=== PATIENT | male | born 1955 | race Caucasian/White ===

== ENCOUNTER 2017-04-21 15:45 | Emergency (ER) | payer OTHER ==
[~2017-04-21] VITALS: Ht 172.7 cm; Wt 86.5 kg
[~2017-04-21 15:45] MED LIST: ACET-818 PO; IBUP-1542 PO
[2017-04-21 15:59] VITALS: Ht 172.7 cm; Wt 86.5 kg
[2017-04-21] MEDS ORDERED: KETOROLAC 30 MG INJ IM STA (18:30)
--- NOTE | 2017-04-21 18:50 | RADRPT ---
PROCEDURE: XR Ankle. CLINICAL INDICATION: Right ankle pain. Trauma TECHNIQUE: AP, lateral, and lateral views of the right ankle were performed. COMPARISON: None. FINDINGS: There is normal mineralization and alignment. No fracture or dislocation is identified. The ankle m ortise is intact. Mild to moderate bimalleolar soft tissue swelling is seen. The remaining soft tiss ues are unremarkable. IMPRESSION: Mild to moderate bimalleolar soft tissue swelling. RPTAT: HPNM Physician Ariana Date Time Electronically viewed and signed by Physician Ariana on 04/21/2017 18:49 /
--- NOTE | 2017-04-21 18:52 | RADRPT ---
PROCEDURE: XR Foot. CLINICAL INDICATION: Right foot pain. Injury TECHNIQUE: AP, lateral and oblique views of the right foot was obtained. The images were reviewed on a PACS workstation. COMPARISON: None. FINDINGS: The bones of the foot appear intact, with no evidence of fracture, dislocation, or subluxation. The joint spaces are preserved. Bone mineralization is normal. The soft tissue structures are intact. IMPRESSION: Unremarkable right foot radiographs. RPTAT: HPNM Physician Ariana Date Time Electronically viewed and signed by Physician Ariana on 04/21/2017 18:52 /
[2017-04-21] MEDS ORDERED: NAPR-260 PO (19:17)
[2017-04-21] MEDS ORDERED: RANI150T9 PO (19:17)
--- NOTE | 2017-04-22 18:02 | ERD ---
ER Documentation Chief Complaint Chief Complaint Complains of right ankle pain HPI This patient is a 61-year-old male with complaints of right ankle pain which began yesterday after injury. 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 He did not fall. There is no head injury or loss of consciousness. Pain currently is constant and worse with walking. Associated with swelling. He denies taking medication for relief of symptoms. No other injuries or symptoms reported at this time. ROS All systems reviewed and are negative except as per history of present illness. Medications Home Meds Active Scripts Ranitidine Hcl* (Zantac*) 150 Mg Tablet, 150 MG PO BID Y for EPIGASTRIC PAIN, # 20 TAB Prov:EMILY LEBLANC PA-C 04/21/17 Naproxen* (Naprosyn*) 500 Mg Tablet, 500 MG PO BID Y for PAIN AND/OR INFLAMMATION, #20 TAB Prov:EMILY LEBLANC PA-C 04/21/17 Reported Medications Ibuprofen* (Ibuprofen*) 600 Mg Tablet, 600 MG PO Q6, TAB 09/26/14 Acetaminophen-Codeine* (Tylenol No.3*) 300-30 Mg Tablet, 1 TAB PO Q4H Y for PAIN , TAB 09/26/14 Allergies Allergies: Coded Allergies: No Known Allergy (Unverified , 01/20/16) PMhx/Soc History of Surgery: Yes (RT WRIST SURGERY ) Hx Alcohol Use: No Hx Substance Use: No Hx Tobacco Use: No Smoking Status: Never smoker Physical Exam Vitals Vital Signs Date Time Temp Pulse Resp B/P Pulse Ox O2 Delivery O2 Flow Rate FiO2 04/21/17 15:59 97.9 93 20 159/100 96 Physical Exam Const: Nontoxic, well-appearing male in no acute distress. Head: Atraumatic Eyes: Normal Conjunctiva ENT: Normal External Ears, Nose and Mouth. Ext: Edema noted to the medial and lateral malleolus of the right lower extremity. Tenderness palpation overlying the lateral malleolus. No gross deformity noted. No open fracture noted. Neur: Awake and alert Psych: Normal Mood and Affect Results 24 hrs Current Medications Medications (Trade) Dose Ordered Sig/Nic Route PRN Reason Start Time Stop Time Status Last Admin Dose Admin Ketorolac Tromethamine (Toradol) 30 mg ONCE STAT IM 04/21/17 18:30 04/21/17 18:32 DC 04/21/17 18:51 Procedures/MDM Patient is a pleasant 61-year-old male presenting to the emergency department with complaints of right ankle pain after twisting it yesterday. Physical examination does show some swelling in this area. X-ray did not show fracture. There was mild to moderate bimalleolar soft tissue swelling to the right ankle. The patient was placed in a Anuj wrap and given crutches with appropriate training. Diagnosis is likely right ankle sprain. He was neurovascularly intact post application. He was stable and appropriate for outpatient management. No evidence of life-threatening pathology at time of discharge. Pt/family in agreement with discharge plan/diagnosis. Pt/family advised to return immediately with any new or worsening symptoms. Follow-up with primary care physician within the next 1-2 days. PROCEDURE: XR Ankle. CLINICAL INDICATION: Right ankle pain. Trauma TECHNIQUE: AP, lateral, and lateral views of the right ankle were performed. COMPARISON: None. FINDINGS: There is normal mineralization and alignment. No fracture or dislocation is identified. The ankle mortise is intact. Mild to moderate bimalleolar soft tissue swelling is seen. The remaining soft tissues are unremarkable. IMPRESSION: Mild to moderate bimalleolar soft tissue swelling. RPTAT: HPNM Physician Ariana Date Time Electronically viewed and signed by Physician Ariana on 04/21/2017 18 :49 PROCEDURE: XR Foot. CLINICAL INDICATION: Right foot pain. Injury TECHNIQUE: AP, lateral and oblique views of the right foot was obtained. The images were reviewed on a PACS workstation. COMPARISON: None. FINDINGS: The bones of the foot appear intact, with no evidence of fracture, dislocation, or subluxation. The joint spaces are preserved. Bone mineralization is normal. The soft tissue structures are intact. IMPRESSION: Unremarkable right foot radiographs. RPTAT: HPNM Mukesh Tesfaye Physician Date Time Electronically viewed and signed by Mukesh Tesfaye Physician on 04/21/2017 18 :52 Departure Diagnosis: Primary Impression: Right ankle sprain Encounter type: initial encounter Involved ligament of ankle: unspecified ligament Qualified Code: S93.401A - Sprain of right ankle, unspecified ligament, initial encounter Condition: Fair Patient Instructions: Self-Care for Strains and Sprains Additional Instructions: Call your primary care doctor TOMORROW for an appointment during the next 1-2 days.See the doctor sooner or return here if your condition worsens before your appointment time. EMILY LEBLANC PA-C Apr 22, 2017 18:02
== END 2017-04-21 20:09 | disposition home or self-care (01) ==
LOC: FTE 15:45
DX: S93.401A Sprain of unspecified ligament of right ankle, initial encounter (principal); X50.9XXA Other and unspecified overexertion or strenuous movements or postures, initial encounter; Y92.9 Unspecified place or not applicable
CPT/HCPCS: 73610; 73630; 96372; 99284; J1885

== ENCOUNTER 2018-01-18 12:00 | Emergency (ER) | END 2018-01-18 13:36 | disposition home or self-care (01) ==